=== PATIENT | female | born 1985 | race Caucasian/White ===

== ENCOUNTER → 2017-08-19 | Outpatient (CLI) | payer OTHER ==
[~2017-08-19] MED LIST: ACYC400 PO; ALBIPROI INH; ALBU90OI INH; AZIT250 PO; BIRTH CONTROL IMPLAN; CIPR500 PO; CRUTCH4 USE; CYCL10 PO; Crutch1 EACH MISC; Cyclobenzaprine5 MG PO; ERYT333ERA PO; HYDACE5 PO; HYOS.125; IBUP400 PO; IBUP800; LANS30EC; LEVFLO500 PO; MULVITMINE; MULVITMINE PO; NAPR250; Naprosyn500 MG PO; Norco 5-325 Ta1 EACH PO; ONDA4ODT; PHENA200 PO; PRED20 PO; PROACE100 PO; PROM25 PO; RXPHEN200 PO; RXPROACE PO; SERT50; SULTRIDS PO; TRAM50; VALA500 PO
[2017-08-21 14:39] LABS: HPV Genotype 16 Not Detected (NOTDET); HPV Genotype 18 Not Detected (NOTDET)
[2017-08-28 11:02] LABS: HPV High Risk Other Not Detected (NOTDET)
== END ==
LOC: LAB 13:15
PROVIDERS: Registered Nurse Community Health
DX: Z01.419 Encounter for gynecological examination (general) (routine) without abnormal findings (principal); Z12.4 Encounter for screening for malignant neoplasm of cervix
CPT/HCPCS: 87624; G0123

== ENCOUNTER → 2017-10-01 | Outpatient (CLI) | payer OTHER ==
[2017-10-04 09:27] LABS: HPV Genotype 16 Not Detected (NOTDET); HPV Genotype 18 Not Detected (NOTDET); HPV High Risk Other Not Detected (NOTDET)
== END ==
LOC: LAB 14:57
PROVIDERS: Registered Nurse Community Health
DX: Z12.4 Encounter for screening for malignant neoplasm of cervix (principal)
CPT/HCPCS: 87624; G0123

== ENCOUNTER 2018-02-26 13:53 | Day surgery (SDC) | payer OTHER ==
[~2018-02-26] VITALS: Ht 162.6 cm; Wt 72.6 kg
[~2018-02-26 13:53] MED LIST changes: -IBUP400 PO; -ONDA4ODT; -VALA500 PO
[2018-02-26] MEDS ORDERED: VALA500 PO (14:07)
[2018-02-26] MEDS ORDERED: CYCL10 PO (14:07)
[2018-02-26] MEDS ORDERED: ONDA4ODT (14:07)
[2018-02-26] MEDS ORDERED: IBUP400 PO (14:08)
== END 2018-02-26 17:50 | disposition home or self-care (01) ==
LOC: ORSCSDS 13:53
PROVIDERS: Obstetrics & Gynecology
PROC: 0U5F4ZZ Destruction of Cul-de-sac, Percutaneous Endoscopic Approach (ICD-10-PCS; principal; 2018-02-26 15:00)
DX: N92.0 Excessive and frequent menstruation with regular cycle (principal); N94.6 Dysmenorrhea, unspecified; N94.10 Unspecified dyspareunia; R10.2 Pelvic and perineal pain; K66.0 Peritoneal adhesions (postprocedural) (postinfection); Z87.891 Personal history of nicotine dependence; Z79.899 Other long term (current) drug therapy
CPT/HCPCS: J0171; J0690; J2250; J2550; J2765; J3010; J7040; J7120

== ENCOUNTER 2018-08-27 06:08 | Day surgery (SDC) | payer OTHER ==
[~2018-08-27] VITALS: Ht 162.6 cm; Wt 72.1 kg
[~2018-08-27 06:08] MED LIST changes: +IBUP400 PO; +ONDA4ODT; +Percocet 5-3251 EACH PO; +VALA500 PO
--- NOTE | 2018-08-27 07:08 | NUR ---
History, Chart, Medications and Allergies reviewed before start of procedure.Ambulatory in Day SurgeryLungs clear T/O to Auscultation. Patient reports completing Chlorhexadine shower X2 prior to admission to hospital.Surgical site prepped with 2% Chlorhexidine cloth wipe. NO CLIP PREP DONE, PT DID SELF. Patient confirms NPO status and agrees with scheduled surgery.
--- NOTE | 2018-08-27 17:03 | NUR ---
PT HAS BEEN STABLE POST OP. PT PAIN CONTROLLED WITH 2 OXYCODONE FOR PAIN. NAUSEA POST OP TREATED WITH ZOFRAN AND PHENERGAN. KIT CLEARS AND SOME CRACKERS. KOHLI DRAINING WELL, CLEAR URINE, TO BE DC'D IN THE AM. IV FLUIDS INFUSING ORDERED. PAS TO BLE. PT AMBULATED IN HALLWAY WITH MIN ASSIST. SCANT LLUVIA DRAINAGE. PT USES CALL LIGHT APPROPRIATELY NEEDED.
[2018-08-28 05:35] LABS: BASOPHILS ABSOLUTE AUTO 0.01 K/mm3 (0.00-0.23); BASOPHILS PERCENT AUTO 0 % (0-2); EOSINOPHILS ABSOLUTE AUTO 0.01 K/mm3 (0.00-0.68); EOSINOPHILS PERCENT AUTO 0 % (0-6); Hemoglobin 12.5 g/dL (11.5-16.0); IMMATURE GRAN ABSOLUTE AUTO 0.03 K/mm3 (0.00-0.10); IMMATURE GRAN PERCENT AUTO 0 % (0-1); LYMPHOCYTES ABSOLUTE AUTO 1.84 K/mm3 (0.84-5.20); LYMPHOCYTES PERCENT AUTO 16 % (21-46); MONOCYTES ABSOLUTE AUTO 0.66 K/mm3 (0.16-1.47); MONOCYTES PERCENT AUTO 6 % (4-13); Mean Corpuscular HGB 29.3 pg (26.0-34.0); Mean Corpuscular HGB Conc 33.8 g/dL (31.5-36.5); Mean Corpuscular Volume 87 fL (80-100); Mean Platelet Volume 10.1 fL (9.1-12.4); NEUTROPHILS ABSOLUTE AUTO 8.93 K/mm3 (1.96-9.15); NEUTROPHILS PERCENT AUTO 78 % (41-73); Platelet Count 204 K/mm3 (150-400); RDW Coefficient Variation 12.6 % (11.7-14.2); Red Blood Cell Count 4.26 M/mm3 (3.80-5.20); White Blood Cell Count 11.48 K/mm3 (4.00-11.30)
--- NOTE | 2018-08-28 06:34 | NUR ---
SHIFT SUMMARY PT A&OX4 T/O SHIFT. POD#1 LAVH; ABD SOFT, SLIGHT ABD DISTENTION, BTX4. PT UP IN BUTT WITH SBA X1 DURING SHIFT. SCD'S TO BLE'S. PAIN MANGED PER EMAR. PT REPORTS NAUSEA WITH PAIN MEDICATION, TREATED PER EMAR. PT DENIES CP AND SOB. KAMILLA DC'D 0545; IV GTT STOPPED PER ORDER. PT AT BEDSIDE T/O NIGHT. CALL LIGHT IN REACH; PT DEMONSTRATES USE. WCTM UNTIL REPORT TO DAY SHIFT RN.
[2018-08-28] MEDS ORDERED: PROM25 PO (13:31)
[2018-08-28] MEDS ORDERED: ESTR2 PO (13:33)
[2018-08-28] MEDS ORDERED: DOCU100 PO (13:34)
[2018-08-28] MEDS ORDERED: SIME80CH PO (13:36)
[2018-08-28] MEDS ORDERED: Milk Of Ma400 MG/5 M PO (13:36)
--- NOTE | 2018-08-28 14:21 | NUR ---
DISCHARGE PT PROVIDED WITH WRITTEN AND VERBAL DISCHARGE INSTRUCTIONS BY LION MONIQUE.
== END 2018-08-28 14:10 | disposition home or self-care (01) ==
LOC: ORSCMMR 06:08 → ORD 07:30 → SURS 10:40 → ORSCMMR 08-28 14:10
PROVIDERS: Obstetrics & Gynecology
PROC: 0UT2FZZ Resection of Bilateral Ovaries, Via Natural or Artificial Opening With Percutaneous Endoscopic Assistance (ICD-10-PCS; principal; 2018-08-27 07:30)
PROC: 0UT7FZZ Resection of Bilateral Fallopian Tubes, Via Natural or Artificial Opening With Percutaneous Endoscopic Assistance (ICD-10-PCS; principal; 2018-08-27 07:30)
PROC: 0UT9FZZ Resection of Uterus, Via Natural or Artificial Opening With Percutaneous Endoscopic Assistance (ICD-10-PCS; principal; 2018-08-27 07:30)
DX: N92.0 Excessive and frequent menstruation with regular cycle (principal); N94.6 Dysmenorrhea, unspecified; N94.10 Unspecified dyspareunia; N80.9 Endometriosis, unspecified; D25.9 Leiomyoma of uterus, unspecified; Z87.891 Personal history of nicotine dependence
CPT/HCPCS: 36415; 85025; 88307; J0690; J1100; J1885; J2250; J2405; J3010; J7120

== ENCOUNTER → 2021-10-14 | Outpatient (CLI) | payer OTHER ==
[~2021-10-14] MED LIST changes: +DOCU100 PO; +ESTR2 PO; +Milk Of Ma400 MG/5 M PO; +SIME80CH PO
== END | disposition home or self-care (01) ==
LOC: LAB SHORT 10:50 → LAB 10:50
DX: J02.9 Acute pharyngitis, unspecified (principal)
CPT/HCPCS: 87081

== ENCOUNTER → 2021-10-18 | Outpatient (CLI) | payer OTHER | LOC: LAB 11:50 → LAB SHORT 11:50 | DX: J02.9 Acute pharyngitis, unspecified (principal) | CPT/HCPCS: 87081 ==

== ENCOUNTER → 2022-06-25 | Outpatient (CLI) | payer OTHER ==
[2022-06-25 14:43] LABS: BASOPHILS ABSOLUTE AUTO 0.06 K/mm3 (0.00-0.23); BASOPHILS PERCENT AUTO 1 % (0-2); EOSINOPHILS ABSOLUTE AUTO 0.13 K/mm3 (0.00-0.68); EOSINOPHILS PERCENT AUTO 2 % (0-6); Hematocrit 40.6 % (33.0-51.0); IMMATURE GRAN ABSOLUTE AUTO 0.03 K/mm3 (0.00-0.10); IMMATURE GRAN PERCENT AUTO 1 % (0-1); LYMPHOCYTES ABSOLUTE AUTO 1.34 K/mm3 (0.84-5.20); LYMPHOCYTES PERCENT AUTO 24 % (21-46); MONOCYTES ABSOLUTE AUTO 0.33 K/mm3 (0.16-1.47); MONOCYTES PERCENT AUTO 6 % (4-13); Mean Corpuscular HGB 28.8 pg (26.0-34.0); Mean Corpuscular HGB Conc 34.5 g/dL (31.5-36.5); Mean Corpuscular Volume 84 fL (80-100); Mean Platelet Volume 9.6 fL (9.1-12.4); NEUTROPHILS ABSOLUTE AUTO 3.61 K/mm3 (1.96-9.15); NEUTROPHILS PERCENT AUTO 66 % (41-73); Platelet Count 226 K/mm3 (150-400); RDW Coefficient Variation 13.5 % (11.7-14.2); RDW Standard Deviation 39.9 fL (35.1-46.3); Red Blood Cell Count 4.86 M/mm3 (3.80-5.20)
== END | disposition home or self-care (01) ==
LOC: LAB 13:39 → LAB SHORT 13:39
PROVIDERS: Internal Medicine
DX: R52 Pain, unspecified (principal)
CPT/HCPCS: 85025; 86141

== ENCOUNTER → 2022-10-28 | Outpatient (CLI) | payer OTHER | END | disposition home or self-care (01) | LOC: LAB SHORT 15:45 → LAB 15:45 | DX: N30.91 Cystitis, unspecified with hematuria (principal) | CPT/HCPCS: 87077; 87086; 87186 ==

== ENCOUNTER 2022-11-10 14:50 | Emergency (ER) | payer OTHER ==
[~2022-11-10] VITALS: Ht 162.6 cm; Wt 72.6 kg
== END 2022-11-10 16:30 | disposition home or self-care (01) ==
LOC: ER 14:50
DX: S60.011A Contusion of right thumb without damage to nail, initial encounter (principal); M79.644 Pain in right finger(s); W23.0XXA Caught, crushed, jammed, or pinched between moving objects, initial encounter; Z79.899 Other long term (current) drug therapy; Z88.0 Allergy status to penicillin; Z88.8 Allergy status to other drugs, medicaments and biological substances; Z87.891 Personal history of nicotine dependence
CPT/HCPCS: 73140

== ENCOUNTER → 2022-12-29 | Outpatient (CLI) | payer OTHER ==
[2022-12-31 20:06] LABS: CHLAMYDIA BY NAA Negative (Negative); GONOCOCCUS BY NAA Negative (Negative); TRICH VAG BY NAA Negative (Negative)
== END | disposition home or self-care (01) ==
LOC: LAB SHORT 14:51 → LAB 14:51
PROVIDERS: Family Medicine
DX: N39.0 Urinary tract infection, site not specified (principal); Z20.2 Contact with and (suspected) exposure to infections with a predominantly sexual mode of transmission
CPT/HCPCS: 87086; 87491; 87591; 87661

== ENCOUNTER 2024-06-08 20:22 | Emergency (ER) | payer SELFPAY ==
[~2024-06-08] VITALS: Ht 162.6 cm; Wt 72.6 kg
[2024-06-08 21:02] VITALS: BP 117/92
[2024-06-08] MEDS ORDERED: Lidocaine 4% 1 Patch TOP ONE (22:25)
[2024-06-08] MEDS ORDERED: OxyCODONE HCL 5 MG TAB PO ONE (22:25)
[2024-06-08] MEDS ORDERED: Ketorolac Tromethamine 15mg Vial IM ONE (22:25)
[2024-06-08] MEDS ORDERED: LIDOCAINE1 EACH TOP (22:26)
[2024-06-08] MEDS ORDERED: Robaxin750 MG PO (22:26)
== END 2024-06-08 23:02 | disposition home or self-care (01) ==
LOC: ER 20:22
DX: M54.50 Low back pain, unspecified (principal); Z88.0 Allergy status to penicillin; Z88.3 Allergy status to other anti-infective agents; Z91.013 Allergy to seafood; Z79.899 Other long term (current) drug therapy
CPT/HCPCS: 96372; 99283-25; A9270; J1885